=== PATIENT | male | born 1990 | race African-American/Black ===

== ENCOUNTER → 2017-06-13 | Emergency (ER) | payer BC ==
[~2017-06-13] VITALS: Ht 180.3 cm; Wt 68.0 kg
== END ==
LOC: ED 18:51
DX: R10.9 Unspecified abdominal pain (principal); R30.0 Dysuria; R39.11 Hesitancy of micturition
CPT/HCPCS: 74176; 80053; 81001; 85025; 87491; 87591; 96374; 99284; J1885